=== PATIENT | male | born 1980 | race Caucasian/White ===

== ENCOUNTER 2022-02-19 02:58 | Inpatient (IN) | payer OTHER ==
[2022-02-19] MEDS ORDERED: Morphine 4 MG/ML VIAL ONE (03:17)
[2022-02-19] MEDS ORDERED: Ketorolac Tromethamine 30 MG/ML VIAL ONE (03:17)
[2022-02-19] MEDS ORDERED: Piperacillin/Tazobactam 3.375 GM VIAL ONE (03:18)
[2022-02-19 04:16] LABS: #Basophils 0.1 10x3/uL (0.0-0.2); #Monocytes 1.3 10x3/uL (0.0-1.1); #Neutrophils 12.7 10x3/uL (1.5-8.4); %Basophils 0.3 % (0.0-2.0); %Eosinophils 0.3 % (0.0-6.0); %Monocytes 8.7 % (0.0-10.0); %Neutrophils 83.4 % (40.0-75.0); Hemoglobin 11.2 g/dL (13.5-17.5); Mean Corpuscular Hemoglobin 29.6 pg (27.0-33.0); Mean Corpuscular Volume 82.1 fl (81.2-95.1); Mean Platelet Volume 9.4 fl (7.4-10.4); Platelet Count 277 10x3/uL (150-450); Red Blood Cell (RBC) Count 3.79 10x6/uL (4.32-5.72); White Blood Cell (WBC) Count 15.2 10x3/uL (3.5-10.5)
[2022-02-19 04:32] LABS: ALT (SGPT) 19 U/L (8-55); AST (SGOT) 19 U/L (5-34); Albumin 3.2 g/dL (3.5-5.0); Alkaline Phosphatase 94 U/L (40-110); Anion Gap 18 mmol/L (10-20); BUN (Urea Nitrogen) 15 mg/dL (8.9-20.6); Bilirubin, Total 0.5 mg/dL (0.2-1.2); CRP (Inflammatory) 26.45 mg/dL (= or < 0.5); Calc. Creatinine Clearance 0 mL/min (70-130); Calcium 7.9 mg/dL (7.8-10.44); Carbon Dioxide 22 mmol/L (22-29); Chloride 100 mmol/L (98-107); Globulin 2.7 g/dL (2.4-3.5); Glucose 113 mg/dL (70-105); Magnesium 2.1 mg/dL (1.6-2.6); Protein, Total 5.9 g/dL (6.0-8.3); Sodium 137 mmol/L (136-145)
[2022-02-19 04:36] LABS: Potassium 2.5 mmol/L (3.5-5.1)
[2022-02-19] MEDS ORDERED: Potassium Chloride 20 MEQ TAB ONE (04:44)
[2022-02-19 04:45] LABS: Bilirubin Neg (Negative); Blood, Urine Negative (Negative); Clarity Clear (Clear); Glucose, Urine (Dipstick) Normal (Negative); Ketone, Urine Negative (Negative); Leukocyte 25 (Negative); Nitrite Negative (Negative); Protein, Urine (Dipstick) Negative (Neg-Trace); Specific Gravity, Urine 1.005 (1.002-1.036); Urobilinogen Normal mg/dL (Less than 2)
[2022-02-19 05:13] LABS: Bacteria/HPF Rare-Few HPF (None Seen); RBC/HPF 0-3 HPF (0-3); Squamous Epithelial 0-3 HPF (0-3)
[2022-02-19] MEDS ORDERED: Norepinephrine 8 MG/0.9% NS 250 ML ONE (05:41)
[2022-02-19 05:52] LABS: SARS-CoV-2 NAA Rapid Test Not Detected (NotDetected)
[2022-02-19] MEDS ORDERED: Loratadine 10 MG TAB PO PRN (07:55)
[2022-02-19] MEDS ORDERED: Calcium Carbonate 500 MG ChewTAB PO PRN ×2 (07:55)
[2022-02-19] MEDS ORDERED: Senokot S 8.6-50 MG TAB PO PRN (07:55)
[2022-02-19] MEDS ORDERED: Cepastat Lozenges 1 LOZ PO PRN (07:55)
[2022-02-19] MEDS ORDERED: Loperamide HCl 2 MG CAP PO PRN (07:55)
[2022-02-19] MEDS ORDERED: Ondansetron PF 4 MG/2 ML Vial IVP PRN (07:55)
[2022-02-19] MEDS ORDERED: Moisturizing Cream (Eucerin) 113 GM JAR TOP PRN (07:55)
[2022-02-19] MEDS ORDERED: Artificial Tear Sol 15 ML BOT EA EYE PRN (07:55)
[2022-02-19] MEDS ORDERED: Acetaminophen 325 MG TAB PO PRN (07:55)
[2022-02-19] MEDS ORDERED: Norepinephrine 8 MG/0.9% NS 250 ML IVPB SCH (08:00)
[2022-02-19] MEDS ORDERED: guaiFENesin 100 MG/5 ML UDCUP PO PRN (10:16)
[2022-02-19] MEDS: Famotidine 20 MG TAB PO SCH ×2 (10:32→20:01)
[2022-02-19] MEDS: 1/2 NS w/KCL 20 mEq 1,000 ML IV SCH ×2 (10:32→17:46)
[2022-02-19] MEDS: Piperacillin/Tazobactam 3.375 GM in Sodium Chloride 0.9% 100 ML IVPB SCH ×2 (10:33→17:46)
[2022-02-19] MEDS ORDERED: Iopamidol 300 61% 100 ML VIAL FS ONE (12:30)
[2022-02-19] MEDS: Vancomycin HCl 1 GM in Sodium Chloride 0.9% 250 ML 250 ML IVPB SCH (20:01)
[2022-02-19] MEDS ORDERED: Gabapentin 400 MG CAP PO SCH (21:45)
[2022-02-19] MEDS ORDERED: Baclofen 10 MG TAB PO SCH (21:45)
[2022-02-19] MEDS ORDERED: Sterile Water 20 ML ONE (23:11)
[2022-02-20] MEDS: 1/2 NS w/KCL 20 mEq 1,000 ML IV SCH ×3 (00:34→16:39)
[2022-02-20] MEDS: Piperacillin/Tazobactam 3.375 GM in Sodium Chloride 0.9% 100 ML IVPB SCH ×3 (02:40→17:25)
[2022-02-20 03:49] LABS: #Basophils 0.1 10x3/uL (0.0-0.2); #Eosinphils 0.1 10x3/uL (0.0-0.5); #Monocytes 1.6 10x3/uL (0.0-1.1); #Neutrophils 9.7 10x3/uL (1.5-8.4); %Basophils 0.6 % (0.0-2.0); %Eosinophils 0.9 % (0.0-6.0); %Lymphocytes 7.7 % (18.0-47.0); %Monocytes 12.1 % (0.0-10.0); %Neutrophils 75.9 % (40.0-75.0); Hemoglobin 11.4 g/dL (13.5-17.5); Mean Corpuscular HGB CONC 35.2 g/dL (32.0-36.0); Mean Corpuscular Hemoglobin 29.3 pg (27.0-33.0); Mean Corpuscular Volume 83.3 fl (81.2-95.1); Mean Platelet Volume 9.4 fl (7.4-10.4); Platelet Count 312 10x3/uL (150-450); RBC Distribution Width 13.4 % (11.5-14.5); Red Blood Cell (RBC) Count 3.89 10x6/uL (4.32-5.72); White Blood Cell (WBC) Count 12.8 10x3/uL (3.5-10.5)
[2022-02-20 04:18] LABS: ALT (SGPT) 34 U/L (8-55); AST (SGOT) 40 U/L (5-34); Albumin 2.8 g/dL (3.5-5.0); Alkaline Phosphatase 108 U/L (40-110); Anion Gap 13 mmol/L (10-20); BUN (Urea Nitrogen) 10 mg/dL (8.9-20.6); Bilirubin, Total 0.3 mg/dL (0.2-1.2); Calc. Creatinine Clearance 137 mL/min (70-130); Calcium 8.3 mg/dL (7.8-10.44); Carbon Dioxide 20 mmol/L (22-29); Chloride 112 mmol/L (98-107); Globulin 3.3 g/dL (2.4-3.5); Glucose 123 mg/dL (70-105); Magnesium 2.2 mg/dL (1.6-2.6); Protein, Total 6.1 g/dL (6.0-8.3); Sodium 142 mmol/L (136-145)
[2022-02-20 04:22] LABS: Phosphorus 1.5 mg/dL (2.3-4.7); Potassium 2.9 mmol/L (3.5-5.1)
[2022-02-20] MEDS: Potassium Chloride 20 MEQ TAB PO SCH ×2 (05:57→10:08)
[2022-02-20] MEDS: PHOS-NAK 1 PKT PACK PO SCH ×4 (05:57→20:32)
[2022-02-20] MEDS: Vancomycin HCl 1 GM in Sodium Chloride 0.9% 250 ML 250 ML IVPB SCH (09:15)
[2022-02-20] MEDS: Famotidine 20 MG TAB PO SCH ×2 (09:17→20:32)
[2022-02-20] MEDS: Piperacillin/Tazobactam 3.375 GM VIAL ONE ×2 (10:06→10:08)
[2022-02-20] MEDS ORDERED: Electrolyte Replacement Protocol 1 EACH FS SCH (15:15)
[2022-02-20] MEDS ORDERED: Potassium Chloride 20 MEQ TAB PO SCH (15:45)
[2022-02-20] MEDS ORDERED: PHOS-NAK 1 PKT PACK PO SCH (15:45)
[2022-02-20 19:36] LABS: Vancomycin, Trough 8.3 ug/mL
[2022-02-20] MEDS: HYDROcodone/Acetaminophen 5/325 mg Tablet PO PRN (20:31)
[2022-02-20] MEDS: VANCOMYCIN 1.25 GM/250 ML BAG 1.25 GM in Premix Bag 1 BAG IVPB SCH (20:32)
[2022-02-21] MEDS: PHOS-NAK 1 PKT PACK PO SCH (00:40)
[2022-02-21] MEDS: Piperacillin/Tazobactam 3.375 GM in Sodium Chloride 0.9% 100 ML IVPB SCH ×3 (02:10→23:59)
[2022-02-21] MEDS: 1/2 NS w/KCL 20 mEq 1,000 ML IV SCH ×3 (02:10→15:41)
[2022-02-21] MEDS: HYDROcodone/Acetaminophen 5/325 mg Tablet PO PRN ×2 (02:18→21:07)
[2022-02-21 04:26] LABS: Mean Corpuscular HGB CONC 34.3 g/dL (32.0-36.0); Mean Corpuscular Hemoglobin 28.6 pg (27.0-33.0); Mean Corpuscular Volume 83.4 fl (81.2-95.1); Mean Platelet Volume 9.1 fl (7.4-10.4); Platelet Count 297 10x3/uL (150-450); Red Blood Cell (RBC) Count 3.85 10x6/uL (4.32-5.72); White Blood Cell (WBC) Count 10.7 10x3/uL (3.5-10.5)
[2022-02-21 04:27] LABS: MDiff Complete? YES; Manual Diff?? YES
[2022-02-21 04:30] LABS: Anion Gap 11 mmol/L (10-20); BUN (Urea Nitrogen) 6 mg/dL (8.9-20.6); Calc. Creatinine Clearance 154 mL/min (70-130); Calcium 8.6 mg/dL (7.8-10.44); Carbon Dioxide 19 mmol/L (22-29); Chloride 112 mmol/L (98-107); Glucose 93 mg/dL (70-105); Magnesium 2.1 mg/dL (1.6-2.6); Potassium 3.7 mmol/L (3.5-5.1); Sodium 138 mmol/L (136-145)
[2022-02-21 05:18] LABS: Band 5 % (5-11); Eosinophils 1 % (0-10); Lymphocytes 6 % (21-51); Monocytes 16 % (0-10); Neutrophil 69 % (42-75); Platelet Morphology Comment Appears Adequate; Reactive Lymphocytes 2 % (0-10)
[2022-02-21] MEDS: VANCOMYCIN 1.25 GM/250 ML BAG 1.25 GM in Premix Bag 1 BAG IVPB SCH ×2 (08:42→21:08)
[2022-02-21] MEDS: Famotidine 20 MG TAB PO SCH ×2 (09:00→21:07)
[2022-02-21] MEDS ORDERED: Bupivacaine PF 0.5% 30 ML VIAL ONE (10:36)
[2022-02-21] MEDS ORDERED: EPINEPHrine 1 MG/ML AMP ONE (10:36)
[2022-02-21] MEDS ORDERED: Lidocaine 1% PF 5 ML VIAL ONE (10:41)
[2022-02-21] MEDS ORDERED: PROPOFOL 20 ML ONE (10:41)
[2022-02-21] MEDS ORDERED: Fentanyl 100 MCG/2 ML VIAL ONE (10:41)
[2022-02-21] MEDS ORDERED: Rocuronium Bromide 10 MG/ML (10ML VIAL) ONE (10:42)
[2022-02-21] MEDS ORDERED: Dexamethasone 4 mg/ml Vial ONE (10:42)
[2022-02-21] MEDS ORDERED: Ondansetron PF 4 MG/2 ML Vial ONE (10:42)
[2022-02-21] MEDS ORDERED: Glycopyrrolate 0.2 MG/ML 5 ML SYRINGE ONE (11:31)
[2022-02-21] MEDS ORDERED: SUGAMMADEX SODIUM 200 MG/2 ML VIAL ONE (12:00)
[2022-02-21] MEDS ORDERED: Morphine 2 MG/ML VIAL SLOW IVP PRN (16:30)
[2022-02-21] MEDS ORDERED: Oxybutynin 5 MG TAB PO SCH (21:00)
[2022-02-21] MEDS: Baclofen 10 MG TAB PO SCH (21:06)
[2022-02-21] MEDS: Gabapentin 400 MG CAP PO SCH (21:06)
[2022-02-21] MEDS: DULoxetine 30 MG CAP PO SCH (21:08)
[2022-02-22 04:02] LABS: Hemoglobin 11.4 g/dL (13.5-17.5); Mean Corpuscular Hemoglobin 29.3 pg (27.0-33.0); Mean Corpuscular Volume 83.8 fl (81.2-95.1); Mean Platelet Volume 8.8 fl (7.4-10.4); Platelet Count 304 10x3/uL (150-450); RBC Distribution Width 14.4 % (11.5-14.5); Red Blood Cell (RBC) Count 3.89 10x6/uL (4.32-5.72); White Blood Cell (WBC) Count 10.5 10x3/uL (3.5-10.5)
[2022-02-22 04:19] LABS: Anion Gap 16 mmol/L (10-20); BUN (Urea Nitrogen) 10 mg/dL (8.9-20.6); Calc. Creatinine Clearance 147 mL/min (70-130); Calcium 8.6 mg/dL (7.8-10.44); Carbon Dioxide 18 mmol/L (22-29); Chloride 112 mmol/L (98-107); Glucose 113 mg/dL (70-105); Potassium 4.4 mmol/L (3.5-5.1); Sodium 142 mmol/L (136-145)
[2022-02-22 04:38] LABS: Manual Diff?? YES
[2022-02-22 04:39] LABS: MDiff Complete? YES
[2022-02-22 04:55] LABS: Band 3 % (5-11); Lymphocytes 11 % (21-51); Metamyelocyte 2 % (0-0); Monocytes 6 % (0-10); Myelocyte 1 % (0-0); Neutrophil 73 % (42-75); Reactive Lymphocytes 3 % (0-10)
[2022-02-22 04:56] LABS: Platelet Morphology Comment Appears Adequate
[2022-02-22 07:11] LABS: Vancomycin, Trough 13.5 ug/mL
[2022-02-22] MEDS: VANCOMYCIN 1.25 GM/250 ML BAG 1.25 GM in Premix Bag 1 BAG IVPB SCH ×2 (09:45→22:39)
[2022-02-22] MEDS: Baclofen 10 MG TAB PO SCH ×2 (09:51→22:37)
[2022-02-22] MEDS: Oxybutynin 5 MG TAB PO SCH ×2 (09:51→22:36)
[2022-02-22] MEDS: Gabapentin 400 MG CAP PO SCH ×2 (09:51→22:32)
[2022-02-22] MEDS: DULoxetine 30 MG CAP PO SCH ×2 (09:54→22:36)
[2022-02-22] MEDS: Famotidine 20 MG TAB PO SCH ×2 (09:54→22:36)
[2022-02-22] MEDS: Piperacillin/Tazobactam 3.375 GM in Sodium Chloride 0.9% 100 ML IVPB SCH ×5 (09:57→22:38)
[2022-02-22] MEDS: Lactated Ringer's 1,000 ML IV SCH (18:42)
[2022-02-22] MEDS: HYDROcodone/Acetaminophen 5/325 mg Tablet PO PRN (22:31)
[2022-02-22] MEDS: Topiramate 100 MG TAB PO SCH (22:38)
[2022-02-23] MEDS: Piperacillin/Tazobactam 3.375 GM in Sodium Chloride 0.9% 100 ML IVPB SCH ×2 (03:56→11:59)
[2022-02-23] MEDS: Lactated Ringer's 1,000 ML IV SCH (05:06)
[2022-02-23 05:18] LABS: Anion Gap 11 mmol/L (10-20); BUN (Urea Nitrogen) 10 mg/dL (8.9-20.6); Calc. Creatinine Clearance 149 mL/min (70-130); Calcium 8.4 mg/dL (7.8-10.44); Carbon Dioxide 22 mmol/L (22-29); Chloride 112 mmol/L (98-107); Glucose 106 mg/dL (70-105); Sodium 141 mmol/L (136-145)
[2022-02-23 05:19] LABS: Hemoglobin 11.2 g/dL (13.5-17.5); Mean Corpuscular HGB CONC 33.4 g/dL (32.0-36.0); Mean Corpuscular Hemoglobin 29.1 pg (27.0-33.0); Mean Platelet Volume 8.7 fl (7.4-10.4); Platelet Count 311 10x3/uL (150-450); RBC Distribution Width 15.1 % (11.5-14.5); Red Blood Cell (RBC) Count 3.85 10x6/uL (4.32-5.72)
[2022-02-23 06:34] LABS: MDiff Complete? YES; Platelet Morphology Comment Appears Adequate; RBC Morphology Normal
[2022-02-23 06:37] LABS: Band 11 % (5-11); Lymphocytes 19 % (21-51); Metamyelocyte 2 % (0-0); Monocytes 12 % (0-10); Neutrophil 49 % (42-75); Reactive Lymphocytes 7 % (0-10)
[2022-02-23] MEDS: VANCOMYCIN 1.25 GM/250 ML BAG 1.25 GM in Premix Bag 1 BAG IVPB SCH (08:43)
[2022-02-23] MEDS: Oxybutynin 5 MG TAB PO SCH (08:44)
[2022-02-23] MEDS: Topiramate 100 MG TAB PO SCH (08:44)
[2022-02-23] MEDS: Famotidine 20 MG TAB PO SCH (08:44)
[2022-02-23] MEDS: Baclofen 10 MG TAB PO SCH (08:47)
[2022-02-23] MEDS: DULoxetine 30 MG CAP PO SCH (08:48)
[2022-02-23] MEDS: Gabapentin 400 MG CAP PO SCH (08:49)
[2022-02-23 13:27] VITALS: BMI 28.0
[2022-02-23 16:32] VITALS: BP 130/87; TEMP 97.5
== END 2022-02-23 16:00 | DRG 853 ==
LOC: CSHERS 02:58 → CSHICU 08:31 → EEVIPCON 08:31 → CSHTELE 02-21 00:20
PROVIDERS: ADMIT Internal Medicine; ATTEND Internal Medicine
PROC: 3E03329 Introduction of Other Anti-infective into Peripheral Vein, Percutaneous Approach (ICD-10-PCS; 2022-02-19)
PROC: 3E033XZ Introduction of Vasopressor into Peripheral Vein, Percutaneous Approach (ICD-10-PCS; 2022-02-19)
PROC: 0KBN0ZZ Excision of Right Hip Muscle, Open Approach (ICD-10-PCS; principal; 2022-02-21)
PROC: 0J990ZZ Drainage of Buttock Subcutaneous Tissue and Fascia, Open Approach (ICD-10-PCS; 2022-02-21)
DX: A41.9 Sepsis, unspecified organism (principal); L89.314 Pressure ulcer of right buttock, stage 4; R65.21 Severe sepsis with septic shock; L03.317 Cellulitis of buttock; L02.31 Cutaneous abscess of buttock; G82.20 Paraplegia, unspecified; E87.6 Hypokalemia; Q05.9 Spina bifida, unspecified; G47.30 Sleep apnea, unspecified; I10 Essential (primary) hypertension; K21.9 Gastro-esophageal reflux disease without esophagitis; G43.909 Migraine, unspecified, not intractable, without status migrainosus; Z20.822 Contact with and (suspected) exposure to COVID-19; Z99.81 Dependence on supplemental oxygen; Z88.1 Allergy status to other antibiotic agents; Z88.8 Allergy status to other drugs, medicaments and biological substances; Z79.899 Other long term (current) drug therapy
CPT/HCPCS: 36415; 51702; 74177; 80048; 80053; 80202; 81003; 81015; 83605; 83690; 83735; 84100; 85025; 86140; 87040; 87070; 87086; 87205; 94760; 96374; 96375; J0171; J1100; J1885; J2270; J2405; J2543; J2704; J3010; J3370; J3480; J3490; J7050; J7120; Q9967; S0020; U0002